=== PATIENT | male | born 1975 | race African-American/Black ===

== ENCOUNTER 2021-11-29 12:23 | Inpatient (IN) | payer OTHER, SELFPAY ==
[2021-11-29 14:18] LABS: #Monocytes 0.4 10x3/uL (0.0-1.1); #Neutrophils 2.5 10x3/uL (1.5-8.4); %Eosinophils 0.5 % (0.0-6.0); %Lymphocytes 21.4 % (18.0-47.0); %Monocytes 11.2 % (0.0-10.0); %Neutrophils 66.4 % (40.0-75.0); Hemoglobin 8.7 g/dL (13.5-17.5); Mean Corpuscular HGB CONC 30.4 g/dL (32.0-36.0); Mean Corpuscular Hemoglobin 25.1 pg (27.0-33.0); Mean Corpuscular Volume 82.7 fl (81.2-95.1); Mean Platelet Volume 10.1 fl (7.4-10.4); Platelet Count 218 10x3/uL (150-450); RBC Distribution Width 14.2 % (11.5-14.5); Red Blood Cell (RBC) Count 3.46 10x6/uL (4.32-5.72); White Blood Cell (WBC) Count 3.7 10x3/uL (3.5-10.5)
[2021-11-29 14:30] LABS: ALT (SGPT) 33 U/L (8-55); AST (SGOT) 27 U/L (5-34); Albumin 2.6 g/dL (3.5-5.0); Alkaline Phosphatase 73 U/L (40-110); Anion Gap 13 mmol/L (10-20); BUN (Urea Nitrogen) 22 mg/dL (8.9-20.6); Bilirubin, Total 0.9 mg/dL (0.2-1.2); Calc. Creatinine Clearance 0 mL/min (70-130); Calcium 7.5 mg/dL (7.8-10.44); Carbon Dioxide 30 mmol/L (22-29); Chloride 99 mmol/L (98-107); Globulin 3.1 g/dL (2.4-3.5); Glucose 151 mg/dL (70-105); Potassium 3.1 mmol/L (3.5-5.1); Protein, Total 5.7 g/dL (6.0-8.3); Sodium 139 mmol/L (136-145)
[2021-11-29] MEDS ORDERED: Pantoprazole 40 MG VIAL ONE ×2 (14:54)
[2021-11-29 16:16] LABS: SARS-CoV-2 NAA Rapid Test DETECTED (NotDetected)
[2021-11-29] MEDS ORDERED: Acetaminophen 325 MG TAB PO PRN (16:59)
[2021-11-29] MEDS ORDERED: Acetaminophen 650 MG Suppository PR PRN (16:59)
[2021-11-29] MEDS ORDERED: Ondansetron PF 4 MG/2 ML Vial IVP PRN (16:59)
[2021-11-29] MEDS ORDERED: Ondansetron ODT 4 MG TAB PO PRN (16:59)
[2021-11-29 17:40] LABS: Magnesium 1.9 mg/dL (1.6-2.6)
[2021-11-29] MEDS ORDERED: Sodium Chloride 0.9% 500 ML IV SCH (20:30)
[2021-11-29] MEDS ORDERED: Potassium Chloride 20 MEQ TAB PO SCH (20:30)
[2021-11-30 04:34] LABS: #Eosinphils 0.1 10x3/uL (0.0-0.5); #Monocytes 0.4 10x3/uL (0.0-1.1); #Neutrophils 2.3 10x3/uL (1.5-8.4); %Eosinophils 1.7 % (0.0-6.0); %Lymphocytes 21.7 % (18.0-47.0); %Neutrophils 65.3 % (40.0-75.0); Hemoglobin 8.1 g/dL (13.5-17.5); Mean Corpuscular HGB CONC 30.8 g/dL (32.0-36.0); Mean Corpuscular Volume 81.2 fl (81.2-95.1); Mean Platelet Volume 9.7 fl (7.4-10.4); Platelet Count 224 10x3/uL (150-450); Red Blood Cell (RBC) Count 3.24 10x6/uL (4.32-5.72); White Blood Cell (WBC) Count 3.5 10x3/uL (3.5-10.5)
[2021-11-30 04:57] LABS: Anion Gap 13 mmol/L (10-20); BUN (Urea Nitrogen) 27 mg/dL (8.9-20.6); Calc. Creatinine Clearance 0 mL/min (70-130); Calcium 7.2 mg/dL (7.8-10.44); Carbon Dioxide 29 mmol/L (22-29); Chloride 100 mmol/L (98-107); Glucose 154 mg/dL (70-105); Potassium 3.4 mmol/L (3.5-5.1); Sodium 139 mmol/L (136-145)
[2021-11-30] MEDS ORDERED: Prevnar 13-Val Conj/PF 0.5 ML SYRINGE IM ONE (07:45)
[2021-11-30] MEDS ORDERED: FLU VACC QS2021-22(6MOS UP)/PF 60 MCG/0.5 ML SYRINGE IM ONE (07:45)
[2021-11-30] MEDS: EPOETIN ALFA-EPBX (ESRD) 10,000 UNIT/ML VIAL IVP SCH (10:00)
[2021-11-30] MEDS ORDERED: Heparin 10,000 UNITS/ 10 ML VIAL FS PRN (16:20)
[2021-11-30 16:33] VITALS: BMI 24.0
[2021-12-01 05:01] LABS: Anion Gap 12 mmol/L (10-20); BUN (Urea Nitrogen) 19 mg/dL (8.9-20.6); Calc. Creatinine Clearance 21 mL/min (70-130); Calcium 7.3 mg/dL (7.8-10.44); Carbon Dioxide 29 mmol/L (22-29); Chloride 99 mmol/L (98-107); Glucose 164 mg/dL (70-105); Potassium 3.5 mmol/L (3.5-5.1); Sodium 136 mmol/L (136-145)
[2021-12-01 05:29] LABS: #Eosinphils 0.1 10x3/uL (0.0-0.5); #Monocytes 0.4 10x3/uL (0.0-1.1); #Neutrophils 2.3 10x3/uL (1.5-8.4); %Basophils 0.3 % (0.0-2.0); %Eosinophils 1.9 % (0.0-6.0); %Lymphocytes 24.2 % (18.0-47.0); %Monocytes 11.3 % (0.0-10.0); Hemoglobin 9.1 g/dL (13.5-17.5); Mean Corpuscular HGB CONC 30.1 g/dL (32.0-36.0); Mean Corpuscular Hemoglobin 24.8 pg (27.0-33.0); Mean Corpuscular Volume 82.3 fl (81.2-95.1); Mean Platelet Volume 9.9 fl (7.4-10.4); Platelet Count 266 10x3/uL (150-450); RBC Distribution Width 13.9 % (11.5-14.5); Red Blood Cell (RBC) Count 3.67 10x6/uL (4.32-5.72); White Blood Cell (WBC) Count 3.7 10x3/uL (3.5-10.5)
[2021-12-01] MEDS ORDERED: Dextrose 50% Abboject 50 ML SYRINGE SLOW IVP PRN (13:17)
[2021-12-01] MEDS ORDERED: Dextrose 5% in Water 1,000 ML IV PRN (13:17)
[2021-12-01] MEDS: HumaLOG 300 UNITS/3 ML VIAL SC PRN (15:17)
[2021-12-02 04:13] LABS: #Eosinphils 0.1 10x3/uL (0.0-0.5); #Monocytes 0.5 10x3/uL (0.0-1.1); #Neutrophils 3.3 10x3/uL (1.5-8.4); %Eosinophils 1.4 % (0.0-6.0); %Lymphocytes 21.4 % (18.0-47.0); %Monocytes 10.8 % (0.0-10.0); Hemoglobin 9.3 g/dL (13.5-17.5); Mean Corpuscular Hemoglobin 25.2 pg (27.0-33.0); Mean Corpuscular Volume 81.3 fl (81.2-95.1); Mean Platelet Volume 9.6 fl (7.4-10.4); Platelet Count 282 10x3/uL (150-450); Red Blood Cell (RBC) Count 3.69 10x6/uL (4.32-5.72)
[2021-12-02 04:33] LABS: Anion Gap 13 mmol/L (10-20); BUN (Urea Nitrogen) 28 mg/dL (8.9-20.6); Calc. Creatinine Clearance 16 mL/min (70-130); Calcium 7.5 mg/dL (7.8-10.44); Carbon Dioxide 29 mmol/L (22-29); Chloride 99 mmol/L (98-107); Glucose 147 mg/dL (70-105); Magnesium 1.9 mg/dL (1.6-2.6); Potassium 3.8 mmol/L (3.5-5.1); Sodium 137 mmol/L (136-145)
[2021-12-02] MEDS: HumaLOG 300 UNITS/3 ML VIAL SC PRN (21:00)
[2021-12-03 04:30] LABS: #Eosinphils 0.1 10x3/uL (0.0-0.5); #Monocytes 0.7 10x3/uL (0.0-1.1); #Neutrophils 3.7 10x3/uL (1.5-8.4); %Basophils 0.2 % (0.0-2.0); %Eosinophils 1.6 % (0.0-6.0); %Lymphocytes 19.6 % (18.0-47.0); %Neutrophils 66.2 % (40.0-75.0); Hemoglobin 9.2 g/dL (13.5-17.5); Mean Corpuscular HGB CONC 30.7 g/dL (32.0-36.0); Mean Corpuscular Volume 81.5 fl (81.2-95.1); Mean Platelet Volume 9.6 fl (7.4-10.4); Platelet Count 320 10x3/uL (150-450); RBC Distribution Width 14.2 % (11.5-14.5); Red Blood Cell (RBC) Count 3.68 10x6/uL (4.32-5.72); White Blood Cell (WBC) Count 5.5 10x3/uL (3.5-10.5)
[2021-12-03 05:02] LABS: Anion Gap 14 mmol/L (10-20); BUN (Urea Nitrogen) 37 mg/dL (8.9-20.6); Calc. Creatinine Clearance 13 mL/min (70-130); Calcium 7.7 mg/dL (7.8-10.44); Carbon Dioxide 27 mmol/L (22-29); Chloride 101 mmol/L (98-107); Glucose 220 mg/dL (70-105); Sodium 138 mmol/L (136-145)
[2021-12-03] MEDS: HumaLOG 300 UNITS/3 ML VIAL SC PRN ×2 (06:20→20:30)
[2021-12-03] MEDS: EPOETIN ALFA-EPBX (ESRD) 10,000 UNIT/ML VIAL IVP SCH (10:00)
[2021-12-03] MEDS: Loperamide HCl 2 MG CAP PO SCH ×2 (12:45→22:37)
[2021-12-03] MEDS: traMADol HCl 50 MG TAB PO PRN (23:00)
[2021-12-04] MEDS: Loperamide HCl 2 MG CAP PO SCH ×4 (02:50→18:00)
[2021-12-04 04:45] LABS: Anion Gap 11 mmol/L (10-20); BUN (Urea Nitrogen) 23 mg/dL (8.9-20.6); Calc. Creatinine Clearance 19 mL/min (70-130); Calcium 7.6 mg/dL (7.8-10.44); Carbon Dioxide 30 mmol/L (22-29); Chloride 101 mmol/L (98-107); Glucose 224 mg/dL (70-105); Potassium 4.3 mmol/L (3.5-5.1); Sodium 138 mmol/L (136-145)
[2021-12-04 04:46] LABS: #Monocytes 0.6 10x3/uL (0.0-1.1); #Neutrophils 3.3 10x3/uL (1.5-8.4); %Basophils 0.2 % (0.0-2.0); %Eosinophils 0.8 % (0.0-6.0); %Lymphocytes 22.6 % (18.0-47.0); %Monocytes 11.6 % (0.0-10.0); %Neutrophils 64.4 % (40.0-75.0); Hemoglobin 9.2 g/dL (13.5-17.5); Mean Corpuscular HGB CONC 31.3 g/dL (32.0-36.0); Mean Corpuscular Hemoglobin 25.3 pg (27.0-33.0); Mean Platelet Volume 9.5 fl (7.4-10.4); Platelet Count 275 10x3/uL (150-450); RBC Distribution Width 14.3 % (11.5-14.5); Red Blood Cell (RBC) Count 3.63 10x6/uL (4.32-5.72); White Blood Cell (WBC) Count 5.1 10x3/uL (3.5-10.5)
[2021-12-04] MEDS: HumaLOG 300 UNITS/3 ML VIAL SC PRN ×2 (06:23→13:44)
[2021-12-04] MEDS ORDERED: EPOETIN ALFA-EPBX (ESRD) 10,000 UNIT/ML VIAL IVP PRN (13:00)
[2021-12-04] MEDS: traMADol HCl 50 MG TAB PO PRN (21:04)
[2021-12-05] MEDS: Loperamide HCl 2 MG CAP PO SCH ×4 (00:59→19:31)
[2021-12-05] MEDS ORDERED: EPOETIN ALFA-EPBX (ESRD) 10,000 UNIT/ML VIAL IVP PRN (08:08)
[2021-12-06] MEDS: Loperamide HCl 2 MG CAP PO SCH ×4 (04:53→17:32)
[2021-12-06] MEDS: HumaLOG 300 UNITS/3 ML VIAL SC PRN ×3 (13:39→21:17)
[2021-12-07] MEDS: Loperamide HCl 2 MG CAP PO SCH ×5 (00:03→23:54)
[2021-12-07] MEDS: HumaLOG 300 UNITS/3 ML VIAL SC PRN ×3 (08:27→20:40)
[2021-12-08] MEDS: HumaLOG 300 UNITS/3 ML VIAL SC PRN ×3 (06:24→21:15)
[2021-12-08] MEDS: Loperamide HCl 2 MG CAP PO SCH ×3 (06:25→18:29)
[2021-12-08] MEDS ORDERED: NIFEdipine XL 60 MG TAB PO SCH (09:30)
[2021-12-08] MEDS: NIFEdipine XL 30 MG TAB PO SCH (21:14)
[2021-12-09] MEDS: Loperamide HCl 2 MG CAP PO SCH ×5 (01:18→23:28)
[2021-12-09] MEDS: HumaLOG 300 UNITS/3 ML VIAL SC PRN ×3 (05:59→18:28)
[2021-12-09] MEDS: NIFEdipine XL 30 MG TAB PO SCH ×2 (09:09→20:25)
[2021-12-10] MEDS: HumaLOG 300 UNITS/3 ML VIAL SC PRN ×2 (06:01→17:40)
[2021-12-10] MEDS: Loperamide HCl 2 MG CAP PO SCH ×3 (06:01→17:39)
[2021-12-10] MEDS ORDERED: Sodium Chloride 0.65% Nasal 44 ML BOT EA NARE PRN (07:31)
[2021-12-10] MEDS ORDERED: Artificial Tear Sol 15 ML BOT EA EYE PRN (07:31)
[2021-12-10] MEDS ORDERED: Loratadine 10 MG TAB PO PRN (07:31)
[2021-12-10] MEDS ORDERED: Cepastat Lozenges 1 LOZ PO PRN (07:31)
[2021-12-10] MEDS ORDERED: Bisacodyl 5 MG TAB PO PRN (07:31)
[2021-12-10] MEDS ORDERED: Senokot S 8.6-50 MG TAB PO PRN (07:31)
[2021-12-10] MEDS ORDERED: GUAIFENESIN SF SOLN 200 MG/10 ML UDCUP PO PRN (07:31)
[2021-12-10] MEDS ORDERED: Hydrocerin (Eucerin) Cream 120 gm Jar TOP PRN (07:31)
[2021-12-10] MEDS ORDERED: hydrALAZINE 20 MG/ML VIAL SLOW IVP PRN (07:31)
[2021-12-10] MEDS ORDERED: HYDROcodone/Acetaminophen 5/325 mg Tablet PO PRN (07:31)
[2021-12-10] MEDS ORDERED: Calcium Carbonate 500 MG ChewTAB PO PRN (07:31)
[2021-12-10 08:29] LABS: #Eosinphils 0.1 10x3/uL (0.0-0.5); #Monocytes 0.6 10x3/uL (0.0-1.1); #Neutrophils 4.6 10x3/uL (1.5-8.4); %Basophils 0.3 % (0.0-2.0); %Lymphocytes 22.1 % (18.0-47.0); %Monocytes 8.7 % (0.0-10.0); %Neutrophils 67.6 % (40.0-75.0); Hemoglobin 9.2 g/dL (13.5-17.5); Mean Corpuscular Hemoglobin 25.8 pg (27.0-33.0); Mean Corpuscular Volume 83.4 fl (81.2-95.1); Mean Platelet Volume 10.4 fl (7.4-10.4); Platelet Count 235 10x3/uL (150-450); RBC Distribution Width 15.9 % (11.5-14.5); Red Blood Cell (RBC) Count 3.56 10x6/uL (4.32-5.72); White Blood Cell (WBC) Count 6.8 10x3/uL (3.5-10.5)
[2021-12-10 08:59] LABS: Anion Gap 13 mmol/L (10-20); BUN (Urea Nitrogen) 37 mg/dL (8.9-20.6); Calc. Creatinine Clearance 17 mL/min (70-130); Calcium 8.5 mg/dL (7.8-10.44); Carbon Dioxide 28 mmol/L (22-29); Chloride 101 mmol/L (98-107); Glucose 149 mg/dL (70-105); Phosphorus 2.6 mg/dL (2.3-4.7); Potassium 4.2 mmol/L (3.5-5.1); Sodium 138 mmol/L (136-145)
[2021-12-10] MEDS: NIFEdipine XL 30 MG TAB PO SCH ×2 (11:34→21:40)
[2021-12-11] MEDS: Loperamide HCl 2 MG CAP PO SCH ×3 (00:07→11:55)
[2021-12-11] MEDS: HumaLOG 300 UNITS/3 ML VIAL SC PRN ×2 (06:42→11:55)
[2021-12-11] MEDS: NIFEdipine XL 30 MG TAB PO SCH (09:52)
[2021-12-11 12:16] VITALS: BP 150/85; TEMP 98.1
== END 2021-12-11 14:33 | disposition home health service (06) | DRG 177 ==
LOC: CSHERS 12:23 → CSHERHOLD 18:17 → UNDOADMIN 18:17 → INTOOBSV 18:17 → OBSVTOIN 18:17 → CSHTELE 20:30 → CSHERHOLD 20:30 → CSHTELE 11-30 19:04 → CSHERHOLD 11-30 19:04
PROVIDERS: ADMIT Family Medicine; ATTEND Internal Medicine
PROC: 8E0ZXY6 Isolation (ICD-10-PCS; principal; 2021-11-30)
PROC: 5A1D70Z Performance of Urinary Filtration, Intermittent, Less than 6 Hours Per Day (ICD-10-PCS; 2021-12-03)
DX: U07.1 COVID-19 (principal); N18.6 End stage renal disease; J12.82 Pneumonia due to coronavirus disease 2019; E11.22 Type 2 diabetes mellitus with diabetic chronic kidney disease; E78.5 Hyperlipidemia, unspecified; E11.21 Type 2 diabetes mellitus with diabetic nephropathy; E11.319 Type 2 diabetes mellitus with unspecified diabetic retinopathy without macular edema; H54.7 Unspecified visual loss; E87.6 Hypokalemia; I10 Essential (primary) hypertension; D63.1 Anemia in chronic kidney disease; E88.09 Other disorders of plasma-protein metabolism, not elsewhere classified; Z99.2 Dependence on renal dialysis; Z79.899 Other long term (current) drug therapy
CPT/HCPCS: 36415; 36416; 71045; 80048; 80053; 83735; 84100; 85025; 90935; 93005; 94760; 96372; 96374; C9113; G0257; G0378; J1644; J1815; J7030; Q5105; U0002